=== PATIENT | male | born 1995 | race Caucasian/White ===

== ENCOUNTER 2019-10-09 11:25 | Emergency (ER) | payer SELFPAY ==
[2019-10-09] MEDS ORDERED: Sodium Chloride 0.9% 10 ML Syringe FLUSH PRN (11:32)
[2019-10-09] MEDS ORDERED: ceFAZolin 1 GM Vial IVPUSH ONE (11:46)
[2019-10-09 12:02] LABS: PTT,PARTIAL THROMBOPLSTIN TIME 24.8 SEC (25.6-32.8)
[2019-10-09 12:07] LABS: CHLORIDE,CL 105 mmol/L (98-107); SODIUM,NA 142 mmol/L (136-145)
[2019-10-09 12:08] LABS: ANION GAP 13.2 mmol/L (10-20)
[2019-10-09] MEDS ORDERED: Ondansetron 4 MG/2 ML SDV IV ONE (12:13)
[2019-10-09] MEDS ORDERED: HYDROmorphone 1 MG/ML Syringe IVPUSH ONE (12:13)
[2019-10-09] MEDS ORDERED: HYDROmorphone 0.5 MG/0.5 ML Syringe IV ONE ×2 (12:18→13:17)
[2019-10-09] MEDS ORDERED: HYDROmorphone 0.5 MG/0.5 ML Syringe ONE (12:29)
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
== END 2019-10-09 13:22 | disposition short-term general hospital (02) ==
LOC: VM.ED 11:25
DX: S12.401A Unspecified nondisplaced fracture of fifth cervical vertebra, initial encounter for closed fracture (principal); S01.81XA Laceration without foreign body of other part of head, initial encounter; V49.50XA Passenger injured in collision with unspecified motor vehicles in traffic accident, initial encounter; Y92.410 Unspecified street and highway as the place of occurrence of the external cause
CPT/HCPCS: 36415; 70450; 70486; 71045; 72125; 72170; 80053; 80307; 83605; 83690; 84484; 85025; 85610; 85730; 86140; 93005; 96374; 96375; 96376; 99284-GF; 99285-25; J0690; J1170; J2405